=== PATIENT | male | born 1965 | race Two or more races ===

== ENCOUNTER 2023-06-14 15:46 | Emergency (ER) | payer OTHER ==
[~2023-06-14] VITALS: Ht 160 cm; Wt 59.9 kg
== END 2023-06-14 18:25 | disposition home or self-care (01) ==
LOC: ER → EDBD 15:46 → ER 16:59
DX: L03.818 Cellulitis of other sites (principal); Z77.018 Contact with and (suspected) exposure to other hazardous metals